=== PATIENT | female | born 1965 | race Caucasian/White ===

== ENCOUNTER 2022-08-08 15:36 | Emergency (ER) | payer BC, SELFPAY ==
--- NOTE | 2022-08-08 15:43 | ED.GENADULT ---
HPI - General Adult General Chief complaint: Skin/Abscess/Foreign Body Stated complaint: Blister Back of Neck Time Seen by Provider: 08/08/22 15:42 Source: patient Mode of arrival: ambulatory Limitations: no limitations History of Present Illness HPI narrative: 57-year-old female patient presents to the [facility] with complaints of blisters on the back of her neck that popped up yesterday. Patient states it started itching to the back of the neck and higher partner states that she had a couple blisters there. Patient states she has had shingles before in that same area. Patient states she has not received the shingles vaccine. Related Data Home Medications Medication Instructions Recorded Confirmed diclofenac sodium 75 mg 75 mg PO BID 08/08/22 08/08/22 tablet,delayed release guselkumab 100 mg/mL subcutaneous See Rx Instructions .Route .COMPLEX 08/08/22 08/08/22 auto-injector (Tremfya) venlafaxine 37.5 mg 37.5 mg PO DAILY 08/08/22 08/08/22 capsule,extended release 24 hr Allergies Allergy/AdvReac Type Severity Reaction Status Date / Time No Known Allergies Allergy Verified 08/08/22 15:49 Review of Systems Review of Systems: CONSTITUTIONAL: Denies fever, chills, or sweats. EYES: Denies visual changes, redness, or discharge. ENT: Denies rhinorrhea, congestion, sore throat, or otalgia. CARDIOVASCULAR: Denies chest pain, palpitations, or edema. RESPIRATORY: Denies cough or dyspnea. GASTROINTESTINAL: Denies abdominal pain, nausea, vomiting, or diarrhea. GENITOURINARY: Denies dysuria or hematuria. SKIN: Denies rash or itching. Positive blistery rash to the back the neck x1 day MUSCULOSKELETAL: Denies back pain, joint pain, or myalgia. NEUROLOGIC: Denies headache, numbness, or weakness. PSYCHIATRIC: Denies anxiety or depression. [facility], [facility] Past Medical History Medical History (Updated 08/08/22 @ 16:10 by MARK Britt) Arthritis Psoriasis Surgical History Surgical History (Updated 08/08/22 @ 16:10 by MARK Britt) H/O rotator cuff surgery History of hysterectomy Comments at the time of my signature I agree with nursing past medical history, surgical, social, and family history. There is no relevant family history pertinent to the presenting complaint. Course Course Level of Care: Express Care Visit Vital Signs Vital signs: Vital Signs Temperature 36.6 C 08/08/22 15:53 Pulse Rate 117 H 08/08/22 15:53 Respiratory Rate 18 08/08/22 15:53 Blood Pressure 163/89 H 08/08/22 15:53 Pulse Oximetry 98 08/08/22 15:53 Oxygen Delivery Room Air 08/08/22 15:53 Temperature 36.6 C 08/08/22 15:53 Pulse Rate 117 H 08/08/22 15:53 Respiratory Rate 18 08/08/22 15:53 Blood Pressure 163/89 H 08/08/22 15:53 Pulse Oximetry 98 08/08/22 15:53 Oxygen Delivery Room Air 08/08/22 15:53 vital signs reviewed The patient has been informed that they may have pre-hypertension or Hypertension based on a BP reading in the department. I recommend that the patient call the primary care provider listed on their discharge instructions or a physician of their choice this week to arrange follow up for further evaluation of possible pre-hypertension or Hypertension Medical Decision Making MDM Narrative Medical decision making narrative: discussed with patient appears that she has a shingles outbreak. Plan of care is to discharge home with oral antivirals Differential Diagnosis Differential Diagnosis: differential diagnosis: Contact dermatitis, poison kedar, poison sumac, psoriasis, eczema, allergic reaction, drug reaction, scabies, tinea syphilis, lung disease, viral exanthema, pityriasis, erythema multiforme , shingles Vital Signs Vital Signs: Vital Signs Temperature 36.6 C 08/08/22 15:53 Pulse Rate 117 H 08/08/22 15:53 Respiratory Rate 18 08/08/22 15:53 Blood Pressure 163/89 H 08/08/22 15:53 Pulse Oximetry 98 08/08/22 15:53 Oxygen Delivery Room Air 07/19
[2022-08-08 15:53] VITALS: BP 163/89; PULSE 117; RESP 18; TEMP 36.6; O2SAT 98
== END 2022-08-08 16:15 | disposition home or self-care (01) ==
PROVIDERS: Emergency Provider Nurse Practitioner Family
DX: B02.9 Zoster without complications (principal); M19.90 Unspecified osteoarthritis, unspecified site; L40.9 Psoriasis, unspecified
CPT/HCPCS: 99203; G0463

== ENCOUNTER 2023-07-10 18:16 | Emergency (ER) | payer BC, SELFPAY ==
[2023-07-10 18:26] VITALS: BP 142/78; PULSE 113; RESP 18; TEMP 36; O2SAT 97
--- NOTE | 2023-07-10 18:40 | ED.URI ---
HPI - URI/Sore Throat General Chief Complaint: Upper Respiratory Infection Stated Complaint: sinus inf Time Seen by Provider: 07/10/23 18:30 Source: patient and RN notes reviewed Mode of arrival: ambulatory Limitations: no limitations History of Present Illness HPI Narrative: Patient presents today complaining of a 6 day history of sinus pressure, cough, congestion. Denies shortness of breath chest pain, fever. She has been using Tylenol, Mucinex without much relief. She tried some Afrin today. Two days ago she was seen at a different Urgent Care and was prescribed Augmentin, which has not helped her symptoms. Denies history of asthma or COPD. Home COVID negative Related Data Home Medications Medication Instructions Recorded Confirmed diclofenac sodium 75 mg 75 mg PO BID 08/08/22 07/10/23 tablet,delayed release venlafaxine 37.5 mg 37.5 mg PO DAILY 08/08/22 07/10/23 capsule,extended release 24 hr apremilast 30 mg tablet (Otezla) 30 mg PO BID 07/10/23 07/10/23 Allergies Allergy/AdvReac Type Severity Reaction Status Date / Time No Known Allergies Allergy Verified 07/10/23 18:19 Review of Systems Review of Systems: CONSTITUTIONAL: Denies body aches, fever, chills, or sweats. EYES: Denies visual changes, redness, or discharge. ENT: Denies rhinorrhea, sore throat, or otalgia.+ congestion, sinus pressure CARDIOVASCULAR: Denies chest pain, palpitations, or edema. RESPIRATORY: Denies dyspnea.+ cough GASTROINTESTINAL: Denies abdominal pain, nausea, vomiting, or diarrhea. GENITOURINARY: Denies dysuria or hematuria. SKIN: Denies rash, itching, or wounds. MUSCULOSKELETAL: Denies back pain, joint pain, or myalgia. NEUROLOGIC: Denies headache, numbness, tingling, or weakness. PSYCH: Denies depression or anxiety. [facility] Past Medical History Medical History Arthritis Psoriasis Surgical History Surgical History H/O rotator cuff surgery History of hysterectomy Comments At time of signature, I have reviewed and agree with nursing past medical, surgical, social and family history unless otherwise noted. Please see nursing chart for further information. There is no relevant family history pertinent to the presenting complaint Exam Narrative: GENERAL: Mildly ill-appearing, well-nourished, and in no acute distress. HEAD: Normocephalic, atraumatic. EYES: EOMI. No redness or drainage. Conjunctivae normal. ENT: Mucous membranes pink and moist. Nares congested with rhinorrhea. TMs normal bilaterally. Throat normal. Uvula midline. NECK: Normal AROM. Supple. No lymphadenopathy. CHEST: No respiratory distress. Clear to auscultation. HEART: Regular rate and rhythm. No murmur appreciated. EXTREMITIES: Normal range of motion. No edema. SKIN: Warm, dry, no rash. Capillary refill normal. Normal skin turgor. NEURO: No focal deficits. Alert and oriented x3. Gait steady. PSYCH: Normal affect. No signs of depression or anxiety. Course Course Level of Care: Express Care Visit Vital Signs Vital signs: Vital Signs Temperature 96.8 F L 07/10/23 18:26 Pulse Rate 113 H 07/10/23 18:26 Respiratory Rate 18 07/10/23 18:26 Blood Pressure 142/78 H 07/10/23 18:26 Pulse Oximetry 97 07/10/23 18:26 Oxygen Delivery Room Air 07/10/23 18:26 Temperature 96.8 F L 07/10/23 18:26 Pulse Rate 113 H 07/10/23 18:26 Respiratory Rate 18 07/10/23 18:26 Blood Pressure 142/78 H 07/10/23 18:26 Pulse Oximetry 97 07/10/23 18:26 Oxygen Delivery Room Air 07/10/23 18:26 Reviewed MDM - URI/Sore Throat MDM Narrative Medical decision making narrative: Symptoms likely viral, especially since antibiotics are not helping. Prescription for prednisone sent to pharmacy to help with her symptoms. Discussed [id number] medication use and duration of illness. [place] [facility]
== END 2023-07-10 18:46 | disposition home or self-care (01) ==
PROVIDERS: Emergency Provider Nurse Practitioner
DX: J06.9 Acute upper respiratory infection, unspecified (principal); M19.90 Unspecified osteoarthritis, unspecified site; L40.9 Psoriasis, unspecified
CPT/HCPCS: 99213; G0463